=== PATIENT | male | born 1955 | race Caucasian/White ===

== ENCOUNTER 2020-11-12 14:32 | Emergency (ER) | payer MEDICAID ==
[~2020-11-12] VITALS: Ht 182.9 cm; Wt 88.6 kg
[2020-11-12] MEDS ORDERED: bacitracin 15gm ointment TP ONE (15:10)
[2020-11-12] MEDS ORDERED: LIDOcaine 1% W/epiNEPHrine 1:200,000 10ml vial IJ ONE (15:10)
[2020-11-12] MEDS ORDERED: TETanus/Pertussis (Acell)/Diphther VAC/PF (Tdap-Adult) 0.5ml syringe IMVAC ONE (15:10)
[2020-11-12] MEDS ORDERED: CEPH-585 PO (16:52)
[2020-11-12] MEDS ORDERED: cephalexin 500mg capsule PO ONE (16:55)
[2020-11-12 17:10] VITALS: BP 127/85
== END 2020-11-12 17:11 | disposition home or self-care (01) ==
LOC: ER 14:33
DX: S81.012A Laceration without foreign body, left knee, initial encounter (principal); Z79.2 Long term (current) use of antibiotics; W26.8XXA Contact with other sharp object(s), not elsewhere classified, initial encounter; Y93.89 Activity, other specified; Y92.89 Other specified places as the place of occurrence of the external cause; Y99.8 Other external cause status
CPT/HCPCS: 12032; 73564; 90471; 90715; 99284

== ENCOUNTER 2020-11-14 07:03 | Emergency (ER) | payer MEDICAID ==
[~2020-11-14] VITALS: Ht 182.9 cm; Wt 88.6 kg
[~2020-11-14 07:03] MED LIST: CEPH-585 PO
[2020-11-14 07:11] VITALS: BP 149/80
== END 2020-11-14 07:48 | disposition home or self-care (01) ==
LOC: ER 07:03
DX: S81.012D Laceration without foreign body, left knee, subsequent encounter (principal); Z79.2 Long term (current) use of antibiotics; X58.XXXD Exposure to other specified factors, subsequent encounter
CPT/HCPCS: 99281

== ENCOUNTER 2020-11-25 08:44 | Emergency (ER) | payer MEDICAID ==
[~2020-11-25] VITALS: Ht 182.9 cm; Wt 83.9 kg
[2020-11-25 09:01] VITALS: BP 150/87
== END 2020-11-25 10:06 | disposition home or self-care (01) ==
LOC: ER 08:45
DX: S81.012D Laceration without foreign body, left knee, subsequent encounter (principal); Z48.02 Encounter for removal of sutures; Z79.2 Long term (current) use of antibiotics; X58.XXXD Exposure to other specified factors, subsequent encounter
CPT/HCPCS: 99281

== ENCOUNTER 2023-11-05 00:17 | Emergency (ER) | payer MEDICAID, MEDICARE ==
[~2023-11-05] VITALS: Ht 182.9 cm; Wt 90.0 kg
[2023-11-05 00:22] VITALS: BP 185/105; PULSE 65; RESP 16; TEMP 98; O2SAT 98
[2023-11-05] MEDS: HYDROcodone/acetaminophen 10/325mg tab PO ONE (01:51)
[2023-11-05] MEDS: ketorolac trometh inj. 60 MG/2 ML VIAL IM ONE (01:51)
[2023-11-05 02:34] LABS: ALBUMIN 3.9 G/DL (3.4-5.0); ANION GAP 8 (8-16); BLOOD UREA NITROGEN 22 MG/DL (7-18); BUN/CREATININE RATIO 18.6 (10.0-20.0); CALCIUM 9.1 MG/DL (8.5-10.1); CHLORIDE 104 MMOL/L (99-107); CREATININE 1.18 MG/DL (0.60-1.10); GLUCOSE 123 MG/DL (70-104); POTASSIUM 4.4 MMOL/L (3.5-5.1); SODIUM 142 MMOL/L (135-145); TOTAL CARBON DIOXIDE 29.7 MMOL/L (24-32); eCRCL 68 ML/MIN; eGFR 62 ML/MIN
[2023-11-05 02:38] LABS: BASOPHILS # (AUTO) 0.1 X10'3 (0-0.2); BASOPHILS % (AUTO) 1.2 % (0-1); EOSINOPHILS # (AUTO) 0.2 X10'3 (0-0.9); EOSINOPHILS % (AUTO) 2.2 % (0-6); HEMATOCRIT 46.5 % (42.0-52.0); HEMOGLOBIN 15.4 g/dl (14.0-17.9); LYMPHOCYTES # (AUTO) 2.3 X10'3 (1.1-4.8); LYMPHOCYTES % (AUTO) 25.8 % (21-51); MEAN CORPUSCULAR HEMOGLOBIN 30.3 PG (27.0-31.0); MEAN CORPUSCULAR HGB CONC 33.1 g/dL (33.0-36.5); MEAN CORPUSCULAR VOLUME 91.5 FL (78-98); MEAN PLATELET VOLUME 8.1 FL (7.4-10.4); MONOCYTES % (AUTO) 10.9 % (2-12); NEUTROPHILS # (AUTO) 5.4 X10'3 (1.8-7.7); NEUTROPHILS % (AUTO) 59.9 % (42-75); PLATELET COUNT 306 X10'3 (140-440); RED BLOOD COUNT 5.09 X10'6 (4.70-6.10); RED CELL DISTRIBUTION WIDTH 14.4 % (11.5-14.5)
[2023-11-05] MEDS ORDERED: CYCL-1 PO (04:22)
[2023-11-05] MEDS ORDERED: ACET-812 PO (04:22)
[2023-11-05] MEDS ORDERED: NAPR-56 PO (04:22)
[2023-11-05] MEDS ORDERED: FLUO15OI15 TOP (04:22)
== END 2023-11-05 04:36 | disposition home or self-care (01) ==
LOC: ER 00:17
DX: M25.50 Pain in unspecified joint (principal)
CPT/HCPCS: 36415; 73110; 80048; 83605; 84145; 85025; 85651; 86140; 96372; 99284; J1885; 99283

== ENCOUNTER 2024-02-03 11:06 | Emergency (ER) | payer MEDICARE ==
[~2024-02-03] VITALS: Ht 182.9 cm; Wt 89.4 kg
[~2024-02-03 11:06] MED LIST changes: -CEPH-585 PO; +CYCL-1 PO
[2024-02-03 11:11] VITALS: BP 182/106; PULSE 67; O2SAT 98
[2024-02-03] MEDS ORDERED: NO HOME MEDS (11:15)
[2024-02-03] MEDS ORDERED: IBUP-1986 PO (13:02)
[2024-02-03] MEDS ORDERED: TRAM50TA2 PO (13:02)
[2024-02-03 13:22] VITALS: RESP 16; TEMP 97.9
== END 2024-02-03 13:23 | disposition home or self-care (01) ==
LOC: ER 11:07
DX: M25.561 Pain in right knee (principal); M25.461 Effusion, right knee; Z79.1 Long term (current) use of non-steroidal anti-inflammatories (NSAID); Z79.899 Other long term (current) drug therapy
CPT/HCPCS: 73560; 99283